=== PATIENT | male | born 1950 | race Caucasian/White ===

== ENCOUNTER 2020-06-21 18:17 | Inpatient (IN) | payer MEDICARE ==
[2020-06-21] MEDS ORDERED: MAG HYDROX/AL HYDROX/SIMETH 30 ML, HYOSCYAMINE ELIXIR 10 ML, LIDOCAINE VISCOUS 2% 10 ML PO STA ×3 (20:34)
[2020-06-21 21:12] LABS: Basophils % (A) 0 %; Eosinophils # (A) 0.1 k/uL (0-0.7); Eosinophils % (A) 1 %; HCT 39.5 % (39.0-53.0); HGB 13.9 gm/dL (13.0-17.5); Lymphocytes # (A) 1.2 k/uL (1.0-4.8); Lymphocytes % (A) 14 %; MCH 31.7 pg (25.0-35.0); MCHC 35.2 g/dL (31.0-37.0); MCV 90.1 fL (80.0-100.0); Mean Platelet Volume 7.8; Monocytes # (A) 0.9 k/uL (0-1.0); Monocytes % (A) 10 %; Neutrophils # (A) 5.9 k/uL (1.3-7.7); Neutrophils % (A) 70 %; Platelet Count 167 k/uL (150-450); RBC 4.39 m/uL (4.30-5.90); RDW 12.6 % (11.5-15.5); WBC 8.5 k/uL (3.8-10.6)
--- NOTE | 2020-06-21 21:22 | XR ---
EXAMINATION TYPE: XR chest 2V DATE OF EXAM: 06/21/2020 COMPARISON: NONE HISTORY: Chest pain TECHNIQUE: 2 views FINDINGS: Heart is normal. Lungs are clear of infiltrate. There are old left side posterior rib fract ures. There are old right-sided posterior rib fractures. Thoracic aorta is atheromatous. There is def ormity at the left AC joint consistent with an old injury. IMPRESSION: No active cardiopulmonary disease. Normal heart.
[2020-06-21 21:38] LABS: D-Dimer 0.51 mg/L FEU (<0.60); INR 0.9 (<1.2); Prothrombin Time 9.6 sec (9.0-12.0)
[2020-06-21 21:39] LABS: Partial Thromboplastin Time 20.3 sec (22.0-30.0)
[2020-06-21 21:54] LABS: Calcium 8.3 mg/dL (8.4-10.2); Potassium 4.2 mmol/L (3.5-5.1); Total Bilirubin 0.6 mg/dL (0.2-1.3); Total Protein 6.4 g/dL (6.3-8.2)
[2020-06-21] MEDS ORDERED: SODIUM CHLORIDE 0.9% 1,000 ML IV ONE (22:23)
[2020-06-21] MEDS ORDERED: NALOXONE 0.4 MG/ML 1 ML VIAL IV PRN (22:41)
--- NOTE | 2020-06-21 22:41 | ED ---
General Adult HPI - General Chief complaint: Recheck/Abnormal Lab/Rx Stated complaint: low blood pressure, indigestion Time Seen by Provider: 06/21/20 20:20 Source: patient Mode of arrival: ambulatory Limitations: no limitations - History of Present Illness Initial comments: Patient is a 70-year-old male past history of CT, hypertension who presents to the emergency department with reported weakness and presyncopal sensation. Patient states that his symptoms started this past weekend. He thought he had the flu that he felt generally fatigued, had a low-grade temp and a mild cough. He also had some diarrhea. Patient reports that he was concerned he had heat stroke as he had been working outside all weekend doing [employer]. Reports the majority of his symptoms improved except for significant reflux, persistent hiccups and has had continued presyncopal sensation. Reports that his daughter to his blood pressure at home and it was low. He denies any chest pain or shortness of breath. No abdominal pain. No changes in his bowel or bladder habits currently. Does have sick contacts his had pneumonia last month. Patient is a history of hypertension and does take blood pressure medications. Denies any nausea or vomiting. Good oral intake. Denies black or tarry stools. No history of kidney disease. Denies dysuria or hematuria. No decreased urine output. No other alleviating, precipitating or modifying factors - Related Data Home Medications Medication Instructions Recorded Confirmed Ascorbic Acid [Vitamin C] 500 mg PO DAILY 06/21/20 06/21/20 Aspirin EC [Ecotrin Low Dose] 162 mg PO HS 06/21/20 06/21/20 Atorvastatin Calcium [Lipitor] 40 mg PO HS 06/21/20 06/21/20 Calcium/Magnesium/Zinc 1 tab PO HS 06/21/20 06/21/20 [Trooctt-Zaxgasdsf-Tskk Tablet] Levothyroxine Sodium [Synthroid] 25 mcg PO DAILY 06/21/20 06/21/20 Omeprazole [PriLOSEC] 20 mg PO DAILY 06/21/20 06/21/20 Sacubitril/Valsartan [Entresto 24 1 tab PO BID 06/21/20 06/21/20 mg-26 mg Tablet] Vit C/E/Zn/Coppr/Lutein/Zeaxan 1 tab PO BID 06/21/20 06/21/20 [Preservision Areds 2 Softgel] Allergies Allergy/AdvReac Type Severity Reaction Status Date / Time No Known Allergies Allergy Verified 06/21/20 22:52 Review of Systems ROS Statement: Those systems with pertinent positive or pertinent negative responses have been documented in the HPI. ROS Other: All systems not noted in ROS Statement are negative. Past Medical History Past Medical History: Hypertension, Myocardial Infarction (CT) Additional Past Medical History / Comment(s): cx- larynx. hypothyroidism History of Any Multi-Drug Resistant Organisms: None Reported Additional Past Surgical History / Comment(s): cx- larynx. angioplasty Past Psychological History: No Psychological Hx Reported Smoking Status: Former smoker Past Alcohol Use History: Occasional Past Drug Use History: None Reported General Exam Limitations: no limitations General appearance: alert, in no apparent distress Head exam: Present: atraumatic, normocephalic, normal inspection Eye exam: Present: normal appearance, PERRL, EOMI. Absent: scleral icterus, conjunctival injection, periorbital swelling ENT exam: Present: normal exam, mucous membranes moist Neck exam: Present: normal inspection. Absent: tenderness, meningismus, lymphadenopathy Respiratory exam: Present: normal lung sounds bilaterally. Absent: respiratory distress, wheezes, rales, rhonchi, stridor Cardiovascular Exam: Present: regular rate, normal rhythm, normal heart sounds. Absent: systolic murmur, diastolic murmur, rubs, gallop, clicks GI/Abdominal exam: Present: soft, normal bowel sounds. Absent: distended, tenderness, guarding, rebound, rigid Extremities exam: Present: normal inspection, full ROM, normal capillary refill. Absent: tenderness, pedal edema, joint swelling, calf tenderness Back exam: Present: normal inspection Neurological exam: Present: alert, oriented X3, CN II-XII intact Psychiatric exam: Present: normal affect, normal mood Skin exam: Present: warm, dry, intact, normal color. Absent: rash Course Vital Signs 06/21/20 06/21/20 06/21/20 19:12 20:33 21:25 Temperature 98.2 F Pulse Rate 50 L 63 Pulse Rate [ 66 Sitting] Pulse Rate [ 58 L Standing] Pulse Rate [ 59 L Supine] Respiratory 20 16 16 Rate Blood Pressure 110/54 90/59 Blood Pressure 81/64 [Sitting] Blood Pressure 84/60 [Standing] Blood Pressure 97/61 [Supine] O2 Sat by Pulse 99 97 97 Oximetry 08/14/20 08/14/20 08/14/20 22:00 22:30 22:40 Temperature Pulse Rate Pulse Rate [ Sitting] Pulse Rate [ Standing] Pulse Rate [ Supine] Respiratory Rate Blood Pressure 91/63 105/79 84/66 Blood Pressure [Sitting] Blood Pressure [Standing] Blood Pressure [Supine] O2 Sat by Pulse Oximetry 06/21/20 06/21/20 23:45 23:50 Temperature 98.1 F Pulse Rate Pulse Rate [ Sitting] Pulse Rate [ 67 Standing] Pulse Rate [ 65 Supine] Respiratory 16 16 Rate Blood Pressure Blood Pressure 120/70 [Sitting] Blood Pressure 105/63 [Standing] Blood Pressure 107/67 [Supine] O2 Sat by Pulse 96 Oximetry EKG Findings - EKG Comments: EKG Findings:: EKG demonstrates a sinus rhythm with PACs. Rate of 61. NE interval 136. QRS 122. QTC of 394. J-point elevation in V2 through V5. Some elevation in lead 2. No old EKG for comparison Medical Decision Making - Medical Decision Making Upon arrival patient is placed in room 10. A thorough history and physical exam was performed. Orthostatics are obtained and the patient is hypotensive with positive orthostatics. Periphery is established and the patient was given a liter bolus of normal saline. Laboratory studies were conducted. They are remarkable for a creatinine of 2.5. Unknown the patient's baseline. Patient was sent for a chest x-ray which demonstrates no acute process. I discussed results of the patient. I did recommend hospital admission for continued fluid hydration, nephro and cardiology evaluation. Patient agreed to this. I discussed the case with Dr. Glaser who accepted hospital admission. Patient is currently awaiting a bed on the floor - Lab Data Result diagrams: 06/23/20 09:17 06/24/20 08:59 Lab Results 06/21/20 06/21/20 06/21/20 Range/Units 21:00 21:00 21:00 WBC 8.5 (3.8-10.6) k/uL RBC 4.39 (4.30-5.90) m/uL Hgb 13.9 (13.0-17.5) gm/dL Hct 39.5 (39.0-53.0) % MCV 90.1 (80.0-100.0) fL MCH 31.7 (25.0-35.0) pg MCHC 35.2 (31.0-37.0) g/dL RDW 12.6 (11.5-15.5) % Plt Count 167 (150-450) k/uL Neutrophils % 70 % Lymphocytes % 14 % Monocytes % 10 % Eosinophils % 1 % Basophils % 0 % Neutrophils # 5.9 (1.3-7.7) k/uL Lymphocytes # 1.2 (1.0-4.8) k/uL Monocytes # 0.9 (0-1.0) k/uL Eosinophils # 0.1 (0-0.7) k/uL Basophils # 0.0 (0-0.2) k/uL PT 9.6 (9.0-12.0) sec INR 0.9 (<1.2) APTT 20.3 L (22.0-30.0) sec D-Dimer 0.51 (<0.60) mg/L FEU Sodium 127 L (137-145) mmol/L Potassium 4.2 (3.5-5.1) mmol/L Chloride 96 L (98-107) mmol/L Carbon Dioxide 20 L (22-30) mmol/L Anion Gap 11 mmol/L BUN 85 H (9-20) mg/dL Creatinine 2.54 H (0.66-1.25) mg/dL Est GFR (CKD-EPI)AfAm 28 (>60 ml/min/1.73 sqM) Est GFR (CKD-EPI)NonAf 25 (>60 ml/min/1.73 sqM) Glucose 104 H (74-99) mg/dL Calcium 8.3 L (8.4-10.2) mg/dL Magnesium 2.0 (1.6-2.3) mg/dL Total Bilirubin 0.6 (0.2-1.3) mg/dL AST 18 (17-59) U/L ALT 15 (4-49) U/L Alkaline Phosphatase 51 (38-126) U/L Creatine Kinase (55-170) U/L Troponin I (0.000-0.034) ng/mL Total Protein 6.4 (6.3-8.2) g/dL Albumin 4.0 (3.5-5.0) g/dL Lipase 298 (23-300) U/L TSH (0.465-4.680) mIU/L 06/21/20 06/21/20 Range/Units 21:00 22:33 WBC (3.8-10.6) k/uL RBC (4.30-5.90) m/uL Hgb (13.0-17.5) gm/dL Hct (39.0-53.0) % MCV (80.0-100.0) fL MCH (25.0-35.0) pg MCHC (31.0-37.0) g/dL RDW (11.5-15.5) % Plt Count (150-450) k/uL Neutrophils % % Lymphocytes % % Monocytes % % Eosinophils % % Basophils % % Neutrophils # (1.3-7.7) k/uL Lymphocytes # (1.0-4.8) k/uL Monocytes # (0-1.0) k/uL Eosinophils # (0-0.7) k/uL Basophils # (0-0.2) k/uL PT (9.0-12.0) sec INR (<1.2) APTT (22.0-30.0) sec D-Dimer (<0.60) mg/L FEU Sodium (137-145) mmol/L Potassium (3.5-5.1) mmol/L Chloride (98-107) mmol/L Carbon Dioxide (22-30) mmol/L Anion Gap mmol/L BUN (9-20) mg/dL Creatinine (0.66-1.25) mg/dL Est GFR (CKD-EPI)AfAm (>60 ml/min/1.73 sqM) Est GFR (CKD-EPI)NonAf (>60 ml/min/1.73 sqM) Glucose (74-99) mg/dL Calcium (8.4-10.2) mg/dL Magnesium (1.6-2.3) mg/dL Total Bilirubin (0.2-1.3) mg/dL AST (17-59) U/L ALT (4-49) U/L Alkaline Phosphatase (38-126) U/L Creatine Kinase 135 (55-170) U/L Troponin I <0.012 (0.000-0.034) ng/mL Total Protein (6.3-8.2) g/dL Albumin (3.5-5.0) g/dL Lipase (23-300) U/L TSH 3.700 (0.465-4.680) mIU/L Disposition Clinical Impression: Hypotension, MARGIE (acute kidney injury), Orthostatic dizziness Disposition: ADMITTED IP TO THIS [facility] Condition: Good Is patient prescribed a controlled substance at d/c from ED?: No Decision to Admit Reason: Admit from EC Decision Date: 06/21/20 Decision Time: 22:41
[2020-06-21 23:34] LABS: Appearance,Urine Clear (Clear); Color,Urine Yellow
[2020-06-21 23:35] LABS: Bilirubin,Urine Negative (Negative); Blood,Urine Negative (Negative); Glucose,Urine (UA) Negative (Negative); Ketones,Urine Negative (Negative); Protein,Urine Negative (Negative); Specific Gravity,Urine 1.005 (1.001-1.035)
[2020-06-21 23:36] LABS: Leukocyte Esterase,Urine Negative (Negative); Nitrite,Urine Negative (Negative); Urobilinogen,Urine <2.0 mg/dL (<2.0)
[2020-06-22] MEDS: SODIUM CHLORIDE 0.9% 1,000 ML IV SCH ×2 (02:31→15:59)
--- NOTE | 2020-06-22 03:00 | P.HPIM ---
History of Present Illness H&P Date: 06/22/20 The patient is a 70-year-old male with a PMH of hypertension, coronary artery disease with history of MS status post stents, who presented to the ED with complaints of lethargy and lightheadedness. The patient reports that his symptoms started over the weekend when he developed diarrhea which lasted for 2 days. He reports that his diarrhea had stopped by Wednesday morning, at which time he began feeling more lethargic and developed occasional low-grade temperature. He reported feeling lightheaded when standing up too quickly or leaning forward. He then developed persistent hiccups 3 days ago, which have not seized. The patient's daughter is a nurse who checked his blood pressure earlier today and noted that it was low. The patient notes that he has been drinking adequate amounts of water, consuming 8-10 glasses of water daily for the past few days. He continues to take his antihypertensives and took them on the day of presentation. Denied chest discomfort, shortness of breath, nausea, vomiting. In the emergency room, laboratory evaluation revealed a BUN of 85, creatinine 2.54, sodium 127, chloride 26, CO2 20, troponin less than 0.012, CK 135, TSH 3.7.EKG revealed sinus rhythm with APCs at 61 bpm. Chest x-ray was unremarkable. Review of Systems Pertinent positives and negatives as discussed in HPI, a complete review of systems was performed and all other systems are negative. Past Medical History Past Medical History: Hypertension, Myocardial Infarction (MS) Additional Past Medical History / Comment(s): cx- larynx. hypothyroidism History of Any Multi-Drug Resistant Organisms: None Reported Additional Past Surgical History / Comment(s): cx- larynx. angioplasty Past Psychological History: No Psychological Hx Reported Smoking Status: Former smoker Past Alcohol Use History: Occasional Past Drug Use History: None Reported Medications and Allergies Home Medications Medication Instructions Recorded Confirmed Type Ascorbic Acid [Vitamin C] 500 mg PO DAILY 06/21/20 06/21/20 History Aspirin EC [Ecotrin Low Dose] 162 mg PO HS 06/21/20 06/21/20 History Atorvastatin Calcium [Lipitor] 40 mg PO HS 06/21/20 06/21/20 History Calcium/Magnesium/Zinc 1 tab PO HS 06/21/20 06/21/20 History [Xvwpirz-Nbfahosvz-Dziq Tablet] Levothyroxine Sodium [Synthroid] 25 mcg PO DAILY 06/21/20 06/21/20 History Metoprolol Succinate (ER) [Toprol 100 mg PO DAILY 06/21/20 06/21/20 History Xl] Omeprazole [PriLOSEC] 20 mg PO DAILY 06/21/20 06/21/20 History Sacubitril/Valsartan [Entresto 24 1 tab PO BID 06/21/20 06/21/20 History mg-26 mg Tablet] Vit C/E/Zn/Coppr/Lutein/Zeaxan 1 tab PO BID 06/21/20 06/21/20 History [Preservision Areds 2 Softgel] amLODIPine [Norvasc] 2.5 mg PO HS 06/21/20 06/21/20 History diphenhydrAMINE [Benadryl] 25 mg PO DAILY 06/21/20 06/21/20 History Allergies Allergy/AdvReac Type Severity Reaction Status Date / Time No Known Allergies Allergy Verified 06/21/20 22:52 Physical Exam Vitals: Vital Signs Temp Pulse Pulse Pulse Pulse Resp BP 06/21/20 22:40 84/66 06/21/20 22:30 105/79 06/21/20 22:00 91/63 06/21/20 21:25 63 16 90/59 06/21/20 20:33 66 58 L 59 L 16 06/21/20 19:12 98.2 F 50 L 20 110/54 BP BP BP Pulse Ox 06/21/20 22:40 06/21/20 22:30 06/21/20 22:00 06/21/20 21:25 97 06/21/20 20:33 81/64 84/60 97/61 97 06/21/20 19:12 99 Intake and Output 06/21/20 06/21/20 06/22/20 14:59 22:59 06:59 Other: Weight 88.451 kg General: non toxic, no distress, appears at stated age, overweight Derm: no unusual rashes/lesions no unusual ecchymoses, warm, dry Head: atraumatic, normocephalic, symmetric Eyes: EOMI, no lid lag, anicteric sclera, pupils equal round reactive to light ENT: Nose and ears atraumatic, no thrush, no pharyngeal erythema Neck: No thyromegaly, no cervical lymphadenopathy, trachea midline, supple Mouth: no lip lesion, mucus membranes moist Cardiovascular: S1S2 reg, no murmur, positive posterior tibial pulse bilateral, no edema, capillary refill less than 2 seconds Lungs: CTA bilateral, no rhonchi, no rales , no accessory muscle use Abdominal: soft, nontender to palpation, no guarding, no appreciable organomegaly, normal bowel sounds Ext: no gross muscle atrophy, muscle strength 5 out of 5 in all 4 extremities grossly, no contractures, Neuro: CN II-XI grossly intact, light touch intact all 4 extremities, finger to nose within normal limits, Psych: Alert, oriented, appropriate affect Results CBC & Chem 7: 06/21/20 21:00 06/21/20 21:00 Labs: Abnormal Lab Results - Last 24 Hours (Table) 06/21/20 06/21/20 Range/Units 21:00 21:00 APTT 20.3 L (22.0-30.0) sec Sodium 127 L (137-145) mmol/L Chloride 96 L (98-107) mmol/L Carbon Dioxide 20 L (22-30) mmol/L BUN 85 H (9-20) mg/dL Creatinine 2.54 H (0.66-1.25) mg/dL Glucose 104 H (74-99) mg/dL Calcium 8.3 L (8.4-10.2) mg/dL Assessment and Plan Plan: Acute renal failure, possibly secondary to dehydration in setting of diarrhea -Continue with IV fluids -Monitor BMP Lightheadedness, likely due to dehydration with orthostatics positive in the emergency room -Fall precautions -Cardiac monitoring -Continue with IV fluids as above Chronic conditions: Hypertension -Hold antihypertensives Hypochloremic hyponatremia -Likely due to dehydration -Continue with fluid resuscitation DVT prophylaxis -Heparin Discussed with: Patient Anticipated discharge date: 2-[address]: Home A total of 40 minutes was spent on the care of this complex patient more than 50% of the time was spent in counseling and care coordination.
[2020-06-22 03:51] LABS: Basophils % (A) 0 %; Eosinophils # (A) 0.1 k/uL (0-0.7); Eosinophils % (A) 1 %; HCT 36.6 % (39.0-53.0); HGB 12.5 gm/dL (13.0-17.5); Lymphocytes # (A) 1.1 k/uL (1.0-4.8); Lymphocytes % (A) 19 %; MCH 30.6 pg (25.0-35.0); MCV 89.9 fL (80.0-100.0); Mean Platelet Volume 8.4; Monocytes # (A) 0.5 k/uL (0-1.0); Monocytes % (A) 9 %; Neutrophils # (A) 3.7 k/uL (1.3-7.7); Neutrophils % (A) 66 %; Platelet Count 130 k/uL (150-450); RBC 4.07 m/uL (4.30-5.90); RDW 12.6 % (11.5-15.5); WBC 5.6 k/uL (3.8-10.6)
[2020-06-22 04:14] LABS: Calcium 8.2 mg/dL (8.4-10.2)
[2020-06-22] MEDS: LEVOTHYROXINE 25 MCG TAB PO SCH (05:16)
[2020-06-22] MEDS: HEPARIN SODIUM,PORCINE 5,000 UNIT/ML 1 ML VIAL SQ SCH ×2 (08:19→17:50)
[2020-06-22] MEDS ORDERED: PANTOPRAZOLE 40 MG TABLET PO STA (10:47)
--- NOTE | 2020-06-22 13:53 | P.PN ---
Progress Note - Text Progress Note Date: 06/22/20 Patient seen and examined at bedside. Admitted after midnight on 06/22 for full note from 06/22 see H and P. Patient reports that he is feeling much better, lightheadedness is better, no nausea, no vomiting, no diarrhea. No chest pain or shortness of breath. He states that he was placed on stress dose secondary to have high blood pressure. He denies any history of congestive heart failure. Patient continues to have low blood pressures as well as acute kidney injury which is improving. Plan for today will be continued IV fluids, holding patient's antihypertensive medications, and renal ultrasound. Further recommendations to follow.
--- NOTE | 2020-06-22 14:01 | US ---
EXAMINATION TYPE: US renals and bladder DATE OF EXAM: 06/22/2020 COMPARISON: NONE CLINICAL HISTORY: MARGIE. Abnormal lab values. EXAM MEASUREMENTS: Right Kidney: 10.8 x 6.0 x 6.1 cm Left Kidney: 9.8 x 4.5 x 5.6 cm Post Void Residual Volume: not assessed on inpatient Right Kidney: lobular cortex is noted Left Kidney: lower cortical cyst = 1.5 x 1.6 x 1.5cm; lobular cortex Bladder: wnl Bilateral Jets seen: yes Cortical thinning both kidneys. Bladder adequately distended. Bilateral distal ureter jets seen. Tech nologist marked a 1.6 cm simple appearing thin-walled cyst lower pole level left kidney medially. IMPRESSION: No hydronephrosis is noted bilaterally.
--- NOTE | 2020-06-22 14:31 | P.NPCON ---
History of Present Illness - Reason for Consult Consult date: 06/22/20 acute renal failure - Chief Complaint Lightheadedness - History of Present Illness 70-year-old gentleman coming to the hospital with lethargy and lightheadedness. He hasn't episodes of diarrhea 2 days prior to his presentation. He also takes antihypertensive medications denies nausea vomiting. He admits hydration at home. Denies any NSAID use. No recent contrast studies. No previous renal function to compare but denies any nephrology issues. On presentation he was hypotensive and orthostatic with a serum creatinine of 2.5 entry to 2.0 with hydration. Denies any urinary retention issues. Review of Systems Constitutional: Reports as per HPI Past Medical History Past Medical History: Hypertension, Myocardial Infarction (PR) Additional Past Medical History / Comment(s): cx- larynx. hypothyroidism Last Myocardial Infarction Date:: 09/1994 History of Any Multi-Drug Resistant Organisms: None Reported Past Surgical History: No Surgical Hx Reported Additional Past Surgical History / Comment(s): cx- larynx. angioplasty Past Anesthesia/Blood Transfusion Reactions: No Reported Reaction Past Psychological History: No Psychological Hx Reported Smoking Status: Former smoker Past Alcohol Use History: Occasional Past Drug Use History: None Reported Medications and Allergies Home Medications Medication Instructions Recorded Confirmed Type Ascorbic Acid [Vitamin C] 500 mg PO DAILY 06/21/20 06/21/20 History Aspirin EC [Ecotrin Low Dose] 162 mg PO HS 06/21/20 06/21/20 History Atorvastatin Calcium [Lipitor] 40 mg PO HS 06/21/20 06/21/20 History Calcium/Magnesium/Zinc 1 tab PO HS 06/21/20 06/21/20 History [Mjyhsci-[place]-Citr Tablet] Levothyroxine Sodium [Synthroid] 25 mcg PO DAILY 06/21/20 06/21/20 History Metoprolol Succinate (ER) [Toprol 100 mg PO DAILY 06/21/20 06/21/20 History Xl] Omeprazole [PriLOSEC] 20 mg PO DAILY 06/21/20 06/21/20 History Sacubitril/Valsartan [Entresto 24 1 tab PO BID 06/21/20 06/21/20 History mg-26 mg Tablet] Vit C/E/Zn/Coppr/Lutein/Zeaxan 1 tab PO BID 06/21/20 06/21/20 History [Preservision Areds 2 Softgel] amLODIPine [Norvasc] 2.5 mg PO HS 06/21/20 06/21/20 History diphenhydrAMINE [Benadryl] 25 mg PO DAILY 06/21/20 06/21/20 History Allergies Allergy/AdvReac Type Severity Reaction Status Date / Time No Known Allergies Allergy Verified 06/21/20 22:52 Physical Exam Vitals: Vital Signs Temp Pulse Pulse Pulse Pulse Pulse Resp 06/22/20 11:39 98.2 F 60 12 06/22/20 09:52 72 73 69 06/22/20 05:00 97.5 F L 71 67 16 06/21/20 23:50 16 06/21/20 23:45 98.1 F 67 65 16 06/21/20 22:40 06/21/20 22:30 06/21/20 22:00 06/21/20 21:25 63 16 06/21/20 20:33 66 58 L 59 L 16 06/21/20 19:12 98.2 F 50 L 20 BP BP BP BP Pulse Ox 06/22/20 11:39 101/56 100 06/22/20 09:52 115/81 89/45 90/53 06/22/20 05:00 101/63 95/64 100/57 94 L 06/21/20 23:50 06/21/20 23:45 120/70 105/63 107/67 96 06/21/20 22:40 84/66 06/21/20 22:30 105/79 06/21/20 22:00 91/63 06/21/20 21:25 90/59 97 06/21/20 20:33 81/64 84/60 97/61 97 06/21/20 19:12 110/54 99 Intake and Output 06/21/20 06/22/20 06/22/20 22:59 06:59 14:59 Intake Total 750 600 Balance 750 600 Intake: Intake, IV Titration 450 600 Amount Sodium Chloride 0.9% 1, 450 600 000 ml @ 75 mls/hr IV . [id number] [facility] Rx#:[id number] Oral 300 Other: Voiding Method Toilet Toilet Urinal Urinal # Voids 2 3 Weight 88.451 kg 88.451 kg No acute distress S1-S2 heard Lungs clear Abdomen soft No edema Results - Lab Results Most recent lab results Calcium 8.2 mg/dL (8.4-10.2) L 06/22/20 03:31 Magnesium 2.0 mg/dL (1.6-2.3) 06/21/20 21:00 06/22/20 03:31 06/22/20 03:31 Assessment and Plan Assessment: #1 acute kidney injury suspect prerenal progressing to ATN. #2 hypotension secondary to volume depletion and antihypertensive medications. #3 hypovolemic hyponatremia #4 anion gap metabolic acidosis secondary to acute kidney injury #5 diarrhea, better Plan: #1 agree with holding all antihypertensive medications including entresto #2 add midodrine for hemodynamic support #3 continue with IV fluids at 75 ML's an hour. #4 urine analysis [place], renal ultrasound no hydronephrosis but distended urinary bladder. Monitor PVRs and straight cath if it's more than 250 ML's. #5 avoid nephrotoxic agents and hypotensive episodes.
[2020-06-22] MEDS: MIDODRINE 5 MG TAB PO SCH (17:50)
[2020-06-22] MEDS: ASPIRIN 81 MG PO SCH (20:20)
[2020-06-22] MEDS: ATORVASTATIN 40 MG TAB PO SCH (20:20)
[2020-06-22 21:20] VITALS: RESP 18
[2020-06-23] MEDS: SODIUM CHLORIDE 0.9% 1,000 ML IV SCH ×2 (01:02→14:36)
[2020-06-23] MEDS: HEPARIN SODIUM,PORCINE 5,000 UNIT/ML 1 ML VIAL SQ SCH ×4 (01:02→23:46)
[2020-06-23] MEDS: LEVOTHYROXINE 25 MCG TAB PO SCH (05:48)
[2020-06-23] MEDS: PANTOPRAZOLE 40 MG TABLET PO SCH (08:05)
[2020-06-23] MEDS: MIDODRINE 5 MG TAB PO SCH ×2 (08:05→17:38)
[2020-06-23 09:47] LABS: HCT 36.7 % (39.0-53.0); HGB 12.2 gm/dL (13.0-17.5); MCH 30.7 pg (25.0-35.0); MCHC 33.4 g/dL (31.0-37.0); Mean Platelet Volume 8.1; Platelet Count 175 k/uL (150-450); RBC 3.99 m/uL (4.30-5.90); RDW 12.8 % (11.5-15.5); WBC 6.3 k/uL (3.8-10.6)
[2020-06-23 09:57] LABS: Calcium 8.5 mg/dL (8.4-10.2); Potassium 4.3 mmol/L (3.5-5.1)
--- NOTE | 2020-06-23 12:16 | P.PN ---
Subjective Progress Note Date: 06/23/20 Follow-up for acute kidney injury. Feels better. No dizziness lightheadedness. No nausea vomiting diarrhea. Objective - Vital Signs Vital signs: Vital Signs Temp 97.5 F L 06/23/20 05:00 Pulse 53 L 06/23/20 05:00 Resp 18 06/23/20 05:00 BP 137/83 06/23/20 05:00 Pulse Ox 94 L 06/23/20 05:00 Intake & Output 06/22/20 06/23/20 06/23/20 18:59 06:59 18:59 Intake Total 600 1850 Output Total 437 2350 150 Balance 163 -500 -150 Intake: Intake, IV Titration 600 750 Amount Sodium Chloride 0.9% 1, 600 750 000 ml @ 75 mls/hr IV . [id number] Rx#:[id number] Oral 1100 Output: Urine 400 2350 150 Post Void Residual 37 Stool 0 Other: Voiding Method Toilet Toilet Urinal Urinal # Voids 700 # Bowel Movements 0 - Exam No acute distress S1-S2 heard Lungs clear No edema - Labs CBC & Chem 7: 06/23/20 09:17 06/23/20 09:17 Labs: Abnormal Lab Results - Last 24 Hours (Table) 06/23/20 06/23/20 Range/Units 09:17 09:17 RBC 3.99 L (4.30-5.90) m/uL Hgb 12.2 L (13.0-17.5) gm/dL Hct 36.7 L (39.0-53.0) % Sodium 136 L (137-145) mmol/L BUN 39 H (9-20) mg/dL Creatinine 1.37 H (0.66-1.25) mg/dL Glucose 128 H (74-99) mg/dL Assessment and Plan Assessment: #1 acute kidney injury suspect prerenal progressing to ATN. #2 hypotension secondary to volume depletion and antihypertensive medications. #3 hypovolemic hyponatremia #4 anion gap metabolic acidosis secondary to acute kidney injury #5 diarrhea, better Plan: #1 agree with holding all antihypertensive medications including entresto #2 continue with midodrine for hemodynamic support #3 IV fluids can be stopped and encouraged by mouth intake. #4 urine analysis [place], renal ultrasound no hydronephrosis but distended urinary bladder. #5 avoid nephrotoxic agents and hypotensive episodes. #6 continue to hold antihypertensive medications and diuretics at discharge, can be restarted as outpatient based on his blood pressure and volume status. Stable from nephrology point of view for discharge.
[2020-06-23] MEDS: MAG HYDROX/AL HYDROX/SIMETH 30 ML CUP PO PRN ×2 (15:04→19:15)
--- NOTE | 2020-06-23 15:36 | P.PN ---
Subjective Progress Note Date: 06/23/20 Patient was seen and examined. Complains of hiccups. He denies any dizziness. Orthostats positive this morning. He denies any chest pain, shortness breath or palpitations. No nausea or vomiting. No fever or chills. Objective - Vital Signs Vital signs: Vital Signs Temp 97.6 F 06/23/20 12:33 Pulse 62 06/23/20 12:33 Resp 18 06/23/20 12:33 BP 133/77 06/23/20 12:33 Pulse Ox 99 06/23/20 12:33 Intake & Output 06/22/20 06/23/20 06/23/20 18:59 06:59 18:59 Intake Total 600 1850 600 Output Total 437 2350 600 Balance 163 -500 0 Intake: Intake, IV Titration 600 750 600 Amount Sodium Chloride 0.9% 1, 600 750 600 000 ml @ 75 mls/hr IV . [id number] Rx#:[id number] Oral 1100 Output: Urine 400 2350 600 Post Void Residual 37 Stool 0 Other: Voiding Method Toilet Toilet Urinal Urinal # Voids 700 # Bowel Movements 0 - Exam General: [non toxic], [no distress], [appears at stated age] Derm: [warm], [dry] Head: [atraumatic], [normocephalic], [symmetric] Eyes: [EOMI], [no lid lag], [anicteric sclera] Mouth: [no lip lesion], [mucus membranes moist] Cardiovascular: [S1S2 reg], [no murmur], [positive posterior tibial pulse bilateral], Lungs: [CTA bilateral], [no rhonchi, no rales] , [no accessory muscle use] Abdominal: [soft], [ nontender to palpation], [no guarding], [no appreciable organomegaly] Ext: [no gross muscle atrophy], [no edema], [no contractures] Neuro: [ CN II-XI grossly intact], [no focal neuro deficits] Psych: [Alert], [oriented], [appropriate affect] - Labs CBC & Chem 7: 06/23/20 09:17 06/23/20 09:17 Labs: Abnormal Lab Results - Last 24 Hours (Table) 08/16/20 08/16/20 Range/Units 09:17 09:17 RBC 3.99 L (4.30-5.90) m/uL Hgb 12.2 L (13.0-17.5) gm/dL Hct 36.7 L (39.0-53.0) % Sodium 136 L (137-145) mmol/L BUN 39 H (9-20) mg/dL Creatinine 1.37 H (0.66-1.25) mg/dL Glucose 128 H (74-99) mg/dL Assessment and Plan Assessment: Acute renal failure, possibly secondary to dehydration in setting of diarrhea -Continue with IV fluids -Started on Midrin -Monitor BMP Lightheadedness, likely due to dehydration with orthostatics positive in the emergency room -Fall precautions -Cardiac monitoring -Continue with IV fluids as above Chronic conditions: Hypertension -Hold antihypertensives Hyponatremia -Likely due to dehydration -Continue with fluid resuscitation [Patient admitted for orthostatic syncope. BP meds on hold. Orthostats positive. Continue IV hydration. Continue Midrin. Nephrology following. Likely DC 1-2 days.]
[2020-06-23] MEDS: ATORVASTATIN 40 MG TAB PO SCH (20:19)
[2020-06-23] MEDS: ASPIRIN 81 MG PO SCH (20:19)
[2020-06-24] MEDS: SODIUM CHLORIDE 0.9% 1,000 ML IV SCH (01:31)
[2020-06-24] MEDS: PANTOPRAZOLE 40 MG TABLET PO SCH (08:38)
[2020-06-24] MEDS: LEVOTHYROXINE 25 MCG TAB PO SCH (08:38)
[2020-06-24] MEDS: HEPARIN SODIUM,PORCINE 5,000 UNIT/ML 1 ML VIAL SQ SCH (08:39)
[2020-06-24] MEDS: MAG HYDROX/AL HYDROX/SIMETH 30 ML CUP PO PRN (08:44)
[2020-06-24 09:23] LABS: Calcium 8.5 mg/dL (8.4-10.2); Potassium 4.2 mmol/L (3.5-5.1)
[2020-06-24] MEDS ORDERED: SACUBITRIL/VALSARTAN 24 MG-26 MG TABLET PO SCH (09:30)
[2020-06-24] MEDS ORDERED: METOPROLOL SUCCINATE (ER) 50 MG TAB.ER.24H PO SCH (09:30)
[2020-06-24] MEDS: MIDODRINE 5 MG TAB PO SCH (10:22)
[2020-06-24 12:24] VITALS: BP 151/79; PULSE 67; TEMP 98
--- NOTE | 2020-06-24 12:29 | P.DS ---
Providers Date of admission: 06/21/20 22:48 Expected date of discharge: 06/24/20 Attending physician: Yas Ma MD Consults: 06/21/20 22:41 Consult Physician Stat Consulting Provider: Gui Grover Consult Reason/Comments: leonel Do you want consulting provider notified?: Yes, Notify in am 06/24/20 09:54 Consult Physician Urgent Consulting Provider: Mu Hercules Consult Reason/Comments: pending d/C on clearance from cardio, runs of v tach and med review Do you want consulting provider notified?: Already Contacted Primary care physician: Arbour-Hri Hospital Course: The patient is a 70-year-old male with a PMH of hypertension, coronary artery disease with history of [place] status post stents, who presented to the ED with complaints of lethargy and lightheadedness. The patient reports that his symptoms started over the weekend when he developed diarrhea which lasted for 2 days. He reports that his diarrhea had stopped by Wednesday morning, at which time he began feeling more lethargic and developed occasional low-grade temperature. He reported feeling lightheaded when standing up too quickly or leaning forward. He then developed persistent hiccups 3 days ago, which have not seized. The patient's daughter is a nurse who checked his blood pressure earlier today and noted that it was low. The patient notes that he has been drinking adequate amounts of water, consuming 8-10 glasses of water daily for the past few days. He continues to take his antihypertensives and took them on the day of presentation. Denied chest discomfort, shortness of breath, nausea, vomiting. In the emergency room, laboratory evaluation revealed a BUN of 85, creatinine 2.54, sodium 127, chloride 26, CO2 20, troponin less than 0.012, CK 135, TSH 3.7.EKG revealed sinus rhythm with APCs at 61 bpm. Chest x-ray was unremarkable. Patient was started on normal saline for IV hydration. His orthostatic vitals were repeated until negative. His antihypertensive medication of Entresto and metoprolol were as held. Nephrology was consulted and added Midodrin. His dizziness resolved while inpatient. Patient was seen and examined. No acute events overnight. Patient denies any dizziness. He denies any chest pain, shortness breath or palpitations. Runs of V. tach seen on telemetry this morning. Patient asymptomatic. General: [non toxic], [no distress], [appears at stated age] Derm: [warm], [dry] Head: [atraumatic], [normocephalic], [symmetric] Eyes: [EOMI], [no lid lag], [anicteric sclera] Mouth: [no lip lesion], [mucus membranes moist] Cardiovascular: [S1S2 reg], [no murmur], [positive posterior tibial pulse bilateral], Lungs: [CTA bilateral], [no rhonchi, no rales] , [no accessory muscle use] Abdominal: [soft], [ nontender to palpation], [no guarding], [no appreciable organomegaly] Ext: [no gross muscle atrophy], [no edema], [no contractures] Neuro: [ CN II-XI grossly intact], [no focal neuro deficits] Psych: [Alert], [oriented], [appropriate affect] Acute renal failure, possibly secondary to dehydration in setting of diarrhea -Encourage hydration by mouth -Started on Midrin, discontinue on discharge -Monitor BMP V. tach -Cardiology consulted, cleared for discharge, would like metoprolol held on to follow-up with molding machine tender at [place] Lightheadedness, likely due to dehydration with orthostatics positive in the emergency room -Fall precautions -Hold amlodipine and metoprolol until follow-up with cardiology in the outpatient -Cardiac monitoring -Continue with IV fluids as above History of CHF -Continue Entresto by mouth Chronic conditions: Hypertension [Patient admitted for orthostatic syncope. Orthostats negative this morning. Patient encouraged hydration by mouth plans to hold metoprolol and amlodipine and to follow-up with his molding machine tender at [place]. Continue Entresto. Anticipated DC home today. Patient verbalized understanding of the plan. This complex DC took about 35 minutes to complete.] Pertinent Studies: Chest x-ray, renal ultrasound Patient Condition at Discharge: Stable Plan - Discharge Summary Discharge Rx Participant: No New Discharge Prescriptions: Continue Calcium/Magnesium/Zinc [Bkcmvsp-Ocniydirg-Mfuv Tablet] 1 tab PO HS Aspirin EC [Ecotrin Low Dose] 162 mg PO HS Ascorbic Acid [Vitamin C] 500 mg PO DAILY Vit C/E/Zn/Coppr/Lutein/Zeaxan [Preservision Areds 2 Softgel] 1 tab PO BID Levothyroxine Sodium [Synthroid] 25 mcg PO DAILY Sacubitril/Valsartan [Entresto 24 mg-26 mg Tablet] 1 tab PO BID Omeprazole [PriLOSEC] 20 mg PO DAILY Atorvastatin Calcium [Lipitor] 40 mg PO HS Discontinued diphenhydrAMINE [Benadryl] 25 mg PO DAILY Metoprolol Succinate (ER) [Toprol Xl] 100 mg PO DAILY amLODIPine [Norvasc] 2.5 mg PO HS Discharge Medication List Ascorbic Acid [Vitamin C] 500 mg PO DAILY 06/21/20 [History] Aspirin EC [Ecotrin Low Dose] 162 mg PO HS 06/21/20 [History] Atorvastatin Calcium [Lipitor] 40 mg PO HS 06/21/20 [History] Calcium/Magnesium/Zinc [Tycbdff-Untmvbvkk-Tfed Tablet] 1 tab PO HS 06/21/20 [History] Levothyroxine Sodium [Synthroid] 25 mcg PO DAILY 06/21/20 [History] Omeprazole [PriLOSEC] 20 mg PO DAILY 06/21/20 [History] Sacubitril/Valsartan [Entresto 24 mg-26 mg Tablet] 1 tab PO BID 06/21/20 [History] Vit C/E/Zn/Coppr/Lutein/Zeaxan [Preservision Areds 2 Softgel] 1 tab PO BID 06/21/20 [History] Follow up Appointment(s)/Referral(s): Hien Gleason MD [STAFF PHYSICIAN] - 07/09/20 11:20 am Rayn Lombardi DO [REFERRING] - 1 Week Blaine Soto MD [Primary Care Provider] - 1-2 days (The office did not answer will call back after lunch.) Activity/Diet/Wound Care/Special Instructions: Diet: Cardiac Consume plenty of fluids Discontinue amlodipine and metoprolol. Take all meds as advised. Come back to ED or call 911 for worsening CP, SOB, palpitations, dizziness. FU Nephro and Cardio within 1 week of DC. FU PCP within 3 days of DC. Your molding machine tender will resume metoprolol at that time if your blood pressure remained stable. Discharge Disposition: HOME SELF-CARE
--- NOTE | 2020-06-24 18:11 | P.CRDCN ---
History of Present Illness Consult date: 06/24/20 History of present illness: This is a very pleasant 70-year-old gentleman with history of coronary artery disease and prior coronary artery stenting with unknown details, the stenting was performed in [place] by a hay stacker in [facility] as well as history of hypertension and dyslipidemia was admitted to the hospital initially with symptoms of a change in mental status associated with symptoms of dizziness and lightheadedness as well as diarrhea. Subsequently the patient was diagnosed with dehydration causing the patient have acute renal failure. When he was p resented to the hospital he was receiving metoprolol as well as losartan and both were held. Subsequently the medication reinitiated slowly. The kidney function has improved significantly. The patient did not have any symptoms of chest pain or chest discomfort or any shortness of breath. He was seen and evaluated this morning. He seems to be asymptomatic from a cardiovascular standpoint of view. He stated that he denies any chest pain or chest discomfort or any shortness of breath or dizziness or heart racing or syncope. He has been maintaining normal sinus mechanism. He stated that the last the stent was performed more than 2 years ago. Interval vital signs, the patient seems to be bradycardic with heart rate in the 60s. He is going to be discharged home and I advised the patient to be discharged on half the dose of Toprol excelled he is on. Also I advised the patient to be started on losartan if it's that okay from the nephrology standpoint overview. He is going to see his hay stacker in a week or so. Past Medical History Past Medical History: Hypertension, Myocardial Infarction ([place]) Additional Past Medical History / Comment(s): cx- larynx. hypothyroidism Last Myocardial Infarction Date:: 09/1994 History of Any Multi-Drug Resistant Organisms: None Reported Past Surgical History: No Surgical Hx Reported Additional Past Surgical History / Comment(s): cx- larynx. angioplasty Past Anesthesia/Blood Transfusion Reactions: No Reported Reaction Past Psychological History: No Psychological Hx Reported Smoking Status: Former smoker Past Alcohol Use History: Occasional Past Drug Use History: None Reported Medications and Allergies Home Medications Medication Instructions Recorded Confirmed Type Ascorbic Acid [Vitamin C] 500 mg PO DAILY 06/21/20 06/21/20 History Aspirin EC [Ecotrin Low Dose] 162 mg PO HS 06/21/20 06/21/20 History Atorvastatin Calcium [Lipitor] 40 mg PO HS 06/21/20 06/21/20 History Calcium/Magnesium/Zinc 1 tab PO HS 06/21/20 06/21/20 History [Lbakrzk-Phdfdrosp-Mwec Tablet] Levothyroxine Sodium [Synthroid] 25 mcg PO DAILY 06/21/20 06/21/20 History Omeprazole [PriLOSEC] 20 mg PO DAILY 06/21/20 06/21/20 History Sacubitril/Valsartan [Entresto 24 1 tab PO BID 06/21/20 06/21/20 History mg-26 mg Tablet] Vit C/E/Zn/Coppr/Lutein/Zeaxan 1 tab PO BID 06/21/20 06/21/20 History [Preservision Areds 2 Softgel] Allergies Allergy/AdvReac Type Severity Reaction Status Date / Time No Known Allergies Allergy Verified 06/21/20 22:52 Physical Exam Vitals: Vital Signs Temp Pulse Pulse Pulse Pulse Resp BP 06/24/20 12:23 98 F 67 18 151/79 06/24/20 05:00 97.8 F 60 18 06/24/20 00:00 62 80 77 18 144/50 06/23/20 21:00 97.7 F 63 18 116/75 BP BP Pulse Ox 06/24/20 12:23 93 L 06/24/20 05:00 137/78 96 06/24/20 00:00 127/74 129/75 06/23/20 21:00 97 Intake and Output 06/24/20 06/24/20 06/24/20 06:59 14:59 22:59 Intake Total 1695 2100 Output Total 1350 45 Balance 345 2055 Intake: Intake, IV Titration 975 600 Amount Sodium Chloride 0.9% 1, 975 600 000 ml @ 75 mls/hr IV . [id number] [facility] Rx#:[id number] Oral 720 1500 Output: Urine 1350 Post Void Residual 45 Stool 0 Other: Voiding Method Toilet Urinal # Voids 3 3 - Constitutional General appearance: no acute distress - Respiratory Respiratory: bilateral: CTA - Cardiovascular Rhythm: regular Heart sounds: normal: S1, S2 Results 06/23/20 09:17 06/24/20 08:59 Comprehensive Metabolic Panel 06/24/20 Range/Units 08:59 Sodium 138 (137-145) mmol/L Potassium 4.2 (3.5-5.1) mmol/L Chloride 105 (98-107) mmol/L Carbon Dioxide 29 (22-30) mmol/L BUN 23 H (9-20) mg/dL Creatinine 1.22 (0.66-1.25) mg/dL Glucose 145 H (74-99) mg/dL Calcium 8.5 (8.4-10.2) mg/dL Intake and Output 06/24/20 06/24/20 06/24/20 06:59 14:59 22:59 Intake Total 1695 2100 Output Total 1350 45 Balance 345 2055 Intake: Intake, IV Titration 975 600 Amount Sodium Chloride 0.9% 1, 975 600 000 ml @ 75 mls/hr IV . [id number] [facility] Rx#:[id number] Oral 720 1500 Output: Urine 1350 Post Void Residual 45 Stool 0 Other: Voiding Method Toilet Urinal # Voids 3 3 06/23/20 09:17 06/24/20 08:59 Assessment and Plan Assessment: Assessment #1 acute renal failure #2 dehydration #3 diarrhea #4 coronary artery disease Plan #1 the patient seems to be stable to be discharged home #2 decrease the dose of Toprol-XL #3 follow-up with his hay stacker
--- NOTE | 2020-06-24 19:32 | PN ---
PROGRESS NOTE Patient is seen for followup for acute kidney injury. The patient's renal function has improved. His creatinine is down from 2.5 to 1.2 now. Blood pressure is also improved, currently about 151 mmHg. It was at 81 mmHg systolic on initial admission. Patient's heart rate remains on the lower side at 53 to 67 per minute. PHYSICAL EXAMINATION: On examination today, blood pressure 116/75, heart rate 63 per minute. He is afebrile. EXAMINATION OF THE HEART: S1 and S2. EXAMINATION OF LUNGS: Bilateral breath sounds are heard. ABDOMEN: Soft, non-tender. Examination of lower extremities shows no evidence of edema. [employer] exam is grossly intact. LABS: Labs show sodium 138, potassium 4.2, BUN , creatinine 1.2 mg/dL. ASSESSMENT: 1. Acute kidney injury secondary to hypotension, hypoperfusion, currently significantly improved. 2. Hypotension. We can continue to hold off on the Lopressor, as heart rate remains on the lower side. The patient can resume his Entresto; however, he will need to take it at a very low dose with repeat labs and follow up as outpatient. He is advised to monitor his blood pressure at home as well and hold the Entresto if blood pressure remains low. 3. Hyponatremia which was mostly hypovolemic. Hyponatremia currently improved with normal saline. PLAN: Patient can be discharged from nephrology standpoint. Continue to hold off on the Lopressor. May use Entresto at a very low dose and monitor blood pressure as outpatient post discharge with repeat labs to be done post discharge as well. MMODL / IJN: [id number] /
== END 2020-06-24 14:27 | disposition home or self-care (01) | DRG 683 ==
LOC: SUPCPDRO 18:17 → EC 18:17 → 5NMEDONC 22:48
PROVIDERS: ADMIT Internal Medicine; ATTEND Internal Medicine
DX: N17.9 Acute kidney failure, unspecified (principal); E87.1 Hypo-osmolality and hyponatremia; E87.2 Acidosis; I47.2 Ventricular tachycardia; K21.9 Gastro-esophageal reflux disease without esophagitis; E86.0 Dehydration; E03.9 Hypothyroidism, unspecified; E86.1 Hypovolemia; I25.10 Atherosclerotic heart disease of native coronary artery without angina pectoris; I95.1 Orthostatic hypotension; R19.7 Diarrhea, unspecified; E87.8 Other disorders of electrolyte and fluid balance, not elsewhere classified; I11.0 Hypertensive heart disease with heart failure; I50.9 Heart failure, unspecified; I25.2 Old myocardial infarction; Z79.890 Hormone replacement therapy; Z79.899 Other long term (current) drug therapy; Z87.891 Personal history of nicotine dependence; Z95.5 Presence of coronary angioplasty implant and graft
CPT/HCPCS: 36415; 71046; 76770; 80048; 80053; 81003; 82550; 83690; 83735; 84443; 84484; 85025; 85027; 85379; 85610; 85730; 93005; 96360; 99285